=== PATIENT | female | born 1995 | race Caucasian/White ===

== ENCOUNTER 2019-08-05 13:16 | Observation (INO) ==
[2019-08-05 14:53] LABS: Basophils % 0.4 %; Eosinophils # 0.1 K/mcL (0.0-0.6); Eosinophils % 0.9 %; Hematocrit 44.2 % (35.3-44.9); Hemoglobin 14.4 g/dL (11.5-15.4); Immature Granulocytes % 0.3 % (0-4); Lymphocytes % 25.8 %; Mean Corpuscular HGB Conc 32.6 g/dL (31.6-35.5); Mean Corpuscular Hemoglobin 28.5 pg (28.0-33.3); Mean Corpuscular Volume 87.5 fL (83.0-100.0); Mean Platelet Volume 9.8 fL (9.4-12.4); Monocytes # 0.4 K/mcL (0.0-1.3); Monocytes % 5.4 %; Neutrophils # 5.1 K/mcL (1.6-8.9); Platelet Count 330 K/mcL (140-400); Red Blood Count 5.05 M/mcL (3.82-4.97); Red Cell Distribution Width 13.7 % (11.5-14.5); Segmented Neutrophils % 67.2 %; White Blood Count 7.6 K/mcL (4.3-11.1)
[2019-08-05 15:03] LABS: Bilirubin,Urine Negative (Negative); Blood,Urine Trace (Negative); Clarity,Urine Clear (Clear); Color,Urine Yellow (Yellow); Glucose,Urine (UA) Normal (Normal); Ketones,Urine Negative (Negative); Leukocyte Esterase,Urine Negative (Negative); Nitrite,Urine Negative (Negative); PH,Urine 6.5 pH Units (5.0-8.0); Protein,Urine Negative (Neg-Trace); Urobilinogen,Urine Normal (Normal)
[2019-08-05 15:06] LABS: Bacteria,Urine None Seen per hpf (None-Few); Hyaline Casts,Urine Few per lpf (None-Few); Squamous Epithelial Cell,Urine Many per lpf (None-Few); WBC,Urine 0-3 per hpf (0-3)
[2019-08-05 15:07] LABS: BUN/Creatinine Ratio 14 (6-26); Blood Urea Nitrogen 12 mg/dL (6-20); Calcium 9.8 mg/dL (8.6-10.3); Carbon Dioxide 28 mEq/L (23-29); Chloride 103 mEq/L (98-107); Glucose 82 mg/dL (70-105); Osmolality,Calculated 287 (280-300); Potassium 3.5 mEq/L (3.5-5.1); Sodium 139 mEq/L (136-145); eGFR For African Americans > 60 (> 60); eGFR For Non-African Americans > 60 (> 60)
[2019-08-05] MEDS ORDERED: 0.9 % Sodium Chloride 1,000 ML IVC ONE (15:26)
[2019-08-05 16:02] LABS: Alanine Aminotransferase 17 Units/L (7-52); Albumin 4.9 g/dL (3.5-5.7); Albumin/Globulin Ratio 1.5 (1.1-2.2); Alkaline Phosphatase 109 Units/L (34-104); Aspartate Amino Transferase 17 Units/L (13-39); Bilirubin,Direct 0.1 mg/dL (0.0-0.2); Bilirubin,Indirect 0.4 mg/dL (0.0-1.0); Bilirubin,Total 0.5 mg/dL (0.3-1.0); Globulin 3.2 g/dL (2.4-3.5); Total Protein 8.1 g/dL (6.4-8.9); Troponin I < 0.03 ng/mL (< 0.04)
[2019-08-05] MEDS ORDERED: Ondansetron 4 MG/2 ML VIAL IVP ONE (16:37)
[2019-08-05] MEDS ORDERED: Naloxone 0.4 MG/ML INJ IVP PRN (17:23)
[2019-08-05] MEDS: Acetaminophen 325 MG TABLET PO PRN (19:46)
[2019-08-05] MEDS: D5% in 0.45% NACL 1,000 ML IVC SCH (19:47)
[2019-08-05] MEDS: Ondansetron 4 MG/2 ML VIAL IVP PRN (23:06)
[2019-08-06 04:54] LABS: Basophils % 0.6 %; Eosinophils # 0.2 K/mcL (0.0-0.6); Eosinophils % 2.2 %; Hematocrit 38.9 % (35.3-44.9); Immature Granulocytes % 0.1 % (0-4); Lymphocytes # 2.8 K/mcL (0.6-4.6); Lymphocytes % 41.3 %; Mean Corpuscular HGB Conc 32.9 g/dL (31.6-35.5); Mean Corpuscular Hemoglobin 28.8 pg (28.0-33.3); Mean Corpuscular Volume 87.6 fL (83.0-100.0); Mean Platelet Volume 9.7 fL (9.4-12.4); Monocytes # 0.6 K/mcL (0.0-1.3); Neutrophils # 3.1 K/mcL (1.6-8.9); Platelet Count 283 K/mcL (140-400); Red Blood Count 4.44 M/mcL (3.82-4.97); Red Cell Distribution Width 13.4 % (11.5-14.5); Segmented Neutrophils % 46.8 %; White Blood Count 6.7 K/mcL (4.3-11.1)
[2019-08-06 04:58] LABS: Hemoglobin 12.8 g/dL (11.5-15.4)
[2019-08-06 05:13] LABS: BUN/Creatinine Ratio 12 (6-26); Blood Urea Nitrogen 9 mg/dL (6-20); Calcium 8.9 mg/dL (8.6-10.3); Carbon Dioxide 24 mEq/L (23-29); Chloride 105 mEq/L (98-107); Glucose 90 mg/dL (70-105); Osmolality,Calculated 286 (280-300); Phosphorous 3.8 mg/dL (2.7-4.5); Potassium 3.5 mEq/L (3.5-5.1); Sodium 139 mEq/L (136-145); eGFR For African Americans > 60 (> 60); eGFR For Non-African Americans > 60 (> 60)
[2019-08-06] MEDS: Ondansetron 4 MG/2 ML VIAL IVP PRN ×2 (07:29→16:06)
[2019-08-06] MEDS: D5% in 0.45% NACL 1,000 ML IVC SCH (08:59)
[2019-08-06] MEDS: Acetaminophen 325 MG TABLET PO PRN (16:05)
[2019-08-07 07:08] VITALS: BP 113/74
== END 2019-08-07 11:18 | disposition home or self-care (01) ==
LOC: EMEROOARM 13:16 → 3ANU 13:16
PROVIDERS: ADMIT Internal Medicine; ATTEND Internal Medicine

== ENCOUNTER 2020-02-29 15:50 | Observation (INO) ==
[2020-02-29] MEDS ORDERED: *HR* Promethazine 25 MG/ML VIAL IVP ONE (16:42)
[2020-02-29 17:33] LABS: Basophils # 0.1 K/mcL (0.0-0.2); Basophils % 0.5 %; Eosinophils # 0.1 K/mcL (0.0-0.6); Eosinophils % 1.4 %; Hematocrit 39.5 % (35.3-44.9); Hemoglobin 12.8 g/dL (11.5-15.4); Immature Granulocytes % 0.2 % (0-4); Mean Corpuscular HGB Conc 32.4 g/dL (31.6-35.5); Mean Corpuscular Hemoglobin 28.6 pg (28.0-33.3); Mean Corpuscular Volume 88.2 fL (83.0-100.0); Mean Platelet Volume 9.8 fL (9.4-12.4); Monocytes # 0.7 K/mcL (0.0-1.3); Neutrophils # 6.4 K/mcL (1.6-8.9); Platelet Count 344 K/mcL (140-400); Red Blood Count 4.48 M/mcL (3.82-4.97); Segmented Neutrophils % 68.9 %; White Blood Count 9.2 K/mcL (4.3-11.1)
[2020-02-29 17:35] LABS: Bilirubin,Urine Negative (Negative); Blood,Urine Small (Negative); Clarity,Urine Clear (Clear); Color,Urine Yellow (Yellow); Glucose,Urine (UA) Normal (Normal); Ketones,Urine Negative (Negative); Leukocyte Esterase,Urine Negative (Negative); Mucus,Urine Few per lpf (None-Few); Nitrite,Urine Negative (Negative); Protein,Urine Trace mg/dL (Neg-Trace); Specific Gravity,Urine 1.027 (1.010-1.025); Squamous Epithelial Cell,Urine Few per hpf (None-Few); Urobilinogen,Urine Normal (Normal); WBC,Urine 0-3 per hpf (0-3)
[2020-02-29 17:53] LABS: Alanine Aminotransferase 49 Units/L (7-52); Albumin 4.2 g/dL (3.5-5.7); Albumin/Globulin Ratio 1.2 (1.1-2.2); Alkaline Phosphatase 120 Units/L (34-104); Amylase 32 Units/L (29-103); Aspartate Amino Transferase 25 Units/L (13-39); BUN/Creatinine Ratio 17 (6-26); Bilirubin,Direct 0.1 mg/dL (0.0-0.2); Bilirubin,Indirect 0.2 mg/dL (0.0-1.0); Bilirubin,Total 0.3 mg/dL (0.3-1.0); Blood Urea Nitrogen 14 mg/dL (6-20); Calcium 9.4 mg/dL (8.6-10.3); Carbon Dioxide 26 mEq/L (23-29); Chloride 103 mEq/L (98-107); Globulin 3.5 g/dL (2.4-3.5); Glucose 81 mg/dL (70-105); Lipase 23 Units/L (11-82); Osmolality,Calculated 282 (280-300); Potassium 3.8 mEq/L (3.5-5.1); Sodium 136 mEq/L (136-145); Total Protein 7.7 g/dL (6.4-8.9); eGFR For African Americans > 60 (> 60); eGFR For Non-African Americans > 60 (> 60)
[2020-02-29] MEDS ORDERED: Morphine Sulfate 2 MG/ML SYRINGE IVP ONE (18:53)
[2020-02-29] MEDS ORDERED: ALPRAZolam 0.5 MG TABLET PO PRN (18:56)
[2020-02-29] MEDS: Pantoprazole 40 MG VIAL IVP SCH (20:58)
[2020-02-29] MEDS: Acetaminophen IV 1,000 MG/100 ML INFUS..BTL IVPB SCH (23:42)
[2020-02-29] MEDS: Ondansetron 4 MG/2 ML VIAL IVP PRN (23:46)
[2020-03-01] MEDS: Ampicillin/Sulbactam 3,000 MG in 0.9 % Sodium Chloride Mini Bag 100 ML IVPB SCH ×2 (00:01→05:37)
[2020-03-01] MEDS: Acetaminophen IV 1,000 MG/100 ML INFUS..BTL IVPB SCH (06:01)
[2020-03-01] MEDS: Ondansetron 4 MG/2 ML VIAL IVP PRN (06:32)
[2020-03-01] MEDS ORDERED: Isovue-300 50ML VIAL ONE (07:12)
[2020-03-01] MEDS ORDERED: *HR* FentaNYL (PF) 100 MCG/2 ML VIAL ONE (07:18)
[2020-03-01] MEDS ORDERED: *HR* Midazolam HCl 5 MG/5 ML VIAL IVP ONE (07:19)
[2020-03-01] MEDS: Pantoprazole 40 MG VIAL IVP SCH (07:19)
[2020-03-01] MEDS ORDERED: *HR* Propofol 200 MG/20 ML VIAL IVP ONE (07:19)
[2020-03-01] MEDS ORDERED: Dexamethasone 4 MG/ML VIAL ONE (07:21)
[2020-03-01] MEDS ORDERED: *HR* Rocuronium Bromide 50 MG/5 ML VIAL ONE (07:21)
[2020-03-01] MEDS ORDERED: Ondansetron 4 MG/2 ML VIAL ONE (07:21)
[2020-03-01] MEDS ORDERED: *HR* Succinylcholine 200 MG/10 ML VIAL IVP ONE (07:21)
[2020-03-01] MEDS ORDERED: Lidocaine HCL 4 ML Topical Solution (Laryng-O-Jet Kit Sterile Pak) TP ONE (07:21)
[2020-03-01] MEDS ORDERED: Balanced Salt Irrig Soln. IR ONE (07:47)
[2020-03-01] MEDS ORDERED: *HR* HYDROMORPHONE 2 MG/ML VIAL ONE (08:55)
[2020-03-01] MEDS ORDERED: Neostigmine Methylsulfate 3 MG/3 ML SYRINGE ONE (09:24)
[2020-03-01] MEDS ORDERED: Ketorolac 30 MG/ML VIAL ONE (09:24)
[2020-03-01] MEDS ORDERED: *HR* Midazolam HCl 2 MG/2 ML VIAL ONE (09:58)
[2020-03-01] MEDS ORDERED: cloNIDine HCL 0.1 MG TABLET ONE (10:19)
[2020-03-01] MEDS ORDERED: *HR* LORazepam 2 MG/ML VIAL ONE (10:19)
[2020-03-01] MEDS: *HR* HYDROmorphone (PF) 1 MG/ML SYRINGE ONE ×2 (10:27→10:37)
[2020-03-01] MEDS ORDERED: *HR* LORazepam 2 MG/ML VIAL IVP PRN (10:34)
[2020-03-01] MEDS ORDERED: cloNIDine HCL 0.1 MG TABLET PO ONE (10:36)
[2020-03-01] MEDS: *HR* HYDROmorphone PF 0.5 MG/0.5 ML SYRINGE IVP PRN ×2 (10:48→11:04)
[2020-03-01] MEDS ORDERED: *HR* OxyCODONE/APAP 5/325 TABLET PO PRN (11:32)
[2020-03-01] MEDS ORDERED: Ondansetron 4 MG/2 ML VIAL IVP PRN (11:32)
[2020-03-01] MEDS ORDERED: ALPRAZolam 0.25 MG TABLET PO PRN (11:32)
[2020-03-01] MEDS ORDERED: Ketorolac 15 MG/ML VIAL IVP SCH (12:00)
[2020-03-01] MEDS ORDERED: Ampicillin/Sulbactam 3,000 MG in 0.9 % Sodium Chloride Mini Bag 100 ML IVPB SCH (12:00)
[2020-03-01 14:50] VITALS: BP 117/79
== END 2020-03-01 16:27 | disposition home or self-care (01) ==
LOC: 3ANU 15:50 → EMEROOARM 15:50 → 3ANU 19:53
PROVIDERS: ADMIT Surgery; ATTEND Surgery

== ENCOUNTER 2020-03-02 21:19 | Observation (INO) ==
[2020-03-02] MEDS ORDERED: Isovue-370 500 ML BOTTLE IVP ONE (22:26)
[2020-03-02 22:44] LABS: Basophils % 0.4 %; Eosinophils # 0.1 K/mcL (0.0-0.6); Eosinophils % 0.6 %; Hematocrit 32.4 % (35.3-44.9); Immature Granulocytes % 0.2 % (0-4); Lymphocytes # 3.1 K/mcL (0.6-4.6); Lymphocytes % 30.7 %; Mean Corpuscular HGB Conc 32.7 g/dL (31.6-35.5); Mean Corpuscular Hemoglobin 28.5 pg (28.0-33.3); Mean Corpuscular Volume 87.1 fL (83.0-100.0); Mean Platelet Volume 9.4 fL (9.4-12.4); Monocytes # 0.9 K/mcL (0.0-1.3); Monocytes % 8.4 %; Neutrophils # 6.1 K/mcL (1.6-8.9); Platelet Count 313 K/mcL (140-400); Red Blood Count 3.72 M/mcL (3.82-4.97); Red Cell Distribution Width 13.4 % (11.5-14.5); Segmented Neutrophils % 59.7 %; White Blood Count 10.2 K/mcL (4.3-11.1)
[2020-03-02 22:52] LABS: Hemoglobin 10.6 g/dL (11.5-15.4)
[2020-03-02 23:04] LABS: BUN/Creatinine Ratio 18 (6-26); Blood Urea Nitrogen 14 mg/dL (6-20); Calcium 8.6 mg/dL (8.6-10.3); Carbon Dioxide 25 mEq/L (23-29); Chloride 107 mEq/L (98-107); Glucose 94 mg/dL (70-105); Osmolality,Calculated 284 (280-300); Potassium 3.8 mEq/L (3.5-5.1); Sodium 137 mEq/L (136-145); eGFR For African Americans > 60 (> 60); eGFR For Non-African Americans > 60 (> 60)
[2020-03-02 23:04] LABS: Bacteria,Urine Few per hpf (None-Few); Bilirubin,Urine Negative (Negative); Blood,Urine Small (Negative); Clarity,Urine Clear (Clear); Color,Urine Colorless (Yellow); Glucose,Urine (UA) Normal (Normal); Ketones,Urine Negative (Negative); Leukocyte Esterase,Urine Negative (Negative); Mucus,Urine Few per lpf (None-Few); Nitrite,Urine Negative (Negative); PH,Urine 6.5 pH Units (5.0-8.0); Protein,Urine Negative (Neg-Trace); Specific Gravity,Urine 1.015 (1.010-1.025); Squamous Epithelial Cell,Urine Few per hpf (None-Few); Urobilinogen,Urine Normal (Normal); WBC,Urine 0-3 per hpf (0-3)
[2020-03-03] MEDS ORDERED: Morphine Sulfate 2 MG/ML SYRINGE IVP ONE (00:38)
[2020-03-03] MEDS ORDERED: Ondansetron 4 MG/2 ML VIAL IVP ONE (00:48)
[2020-03-03] MEDS ORDERED: Naloxone 0.4 MG/ML INJ IVP PRN (02:22)
[2020-03-03] MEDS: 0.9 % Sodium Chloride 1,000 ML IVC SCH ×2 (03:39→11:58)
[2020-03-03 05:20] LABS: Hematocrit 33.2 % (35.3-44.9); Hemoglobin 10.7 g/dL (11.5-15.4); Mean Corpuscular HGB Conc 32.2 g/dL (31.6-35.5); Mean Corpuscular Hemoglobin 28.8 pg (28.0-33.3); Mean Corpuscular Volume 89.5 fL (83.0-100.0); Mean Platelet Volume 9.6 fL (9.4-12.4); Platelet Count 314 K/mcL (140-400); Red Blood Count 3.71 M/mcL (3.82-4.97); Red Cell Distribution Width 13.4 % (11.5-14.5); White Blood Count 10.6 K/mcL (4.3-11.1)
[2020-03-03 05:41] LABS: Alanine Aminotransferase 103 Units/L (7-52); Albumin 3.7 g/dL (3.5-5.7); Albumin/Globulin Ratio 1.3 (1.1-2.2); Alkaline Phosphatase 126 Units/L (34-104); Aspartate Amino Transferase 109 Units/L (13-39); BUN/Creatinine Ratio 16 (6-26); Bilirubin,Total 0.6 mg/dL (0.3-1.0); Blood Urea Nitrogen 12 mg/dL (6-20); Calcium 8.7 mg/dL (8.6-10.3); Carbon Dioxide 26 mEq/L (23-29); Chloride 104 mEq/L (98-107); Globulin 2.9 g/dL (2.4-3.5); Glucose 85 mg/dL (70-105); Magnesium 1.9 mg/dL (1.6-2.6); Osmolality,Calculated 283 (280-300); Phosphorous 2.3 mg/dL (2.7-4.5); Potassium 3.8 mEq/L (3.5-5.1); Sodium 137 mEq/L (136-145); Total Protein 6.6 g/dL (6.4-8.9); eGFR For African Americans > 60 (> 60); eGFR For Non-African Americans > 60 (> 60)
[2020-03-03] MEDS: Ondansetron 4 MG/2 ML VIAL IVP PRN ×3 (06:01→23:26)
[2020-03-03] MEDS ORDERED: ALPRAZolam 0.5 MG TABLET PO PRN (08:52)
[2020-03-03] MEDS: NON-FORMULARY MEDICATION 1 EACH EACH (Norgestimate-Ethinyl Estradiol [Sprintec 28 Day Tabl PO SCH (10:12)
[2020-03-03] MEDS: Pantoprazole 40 MG VIAL IVP SCH ×2 (12:53→17:34)
[2020-03-04 01:57] LABS: Albumin 3.6 g/dL (3.5-5.7); Albumin/Globulin Ratio 1.3 (1.1-2.2); Bilirubin,Direct 0.5 mg/dL (0.0-0.2); Bilirubin,Indirect 0.4 mg/dL (0.0-1.0); Bilirubin,Total 0.9 mg/dL (0.3-1.0); Globulin 2.8 g/dL (2.4-3.5); Total Protein 6.4 g/dL (6.4-8.9)
[2020-03-04 04:05] LABS: Hepatitis B Surface Antigen Nonreactive (Nonreactive)
[2020-03-04 04:35] LABS: Hepatitis C Virus Antibody Nonreactive (Nonreactive)
[2020-03-04 04:36] LABS: Hepatitis B Core IgM Nonreactive (Nonreactive)
[2020-03-04 04:37] LABS: Hepatitis A Antibody IgM Nonreactive (Nonreactive)
[2020-03-04] MEDS: Pantoprazole 40 MG VIAL IVP SCH (05:39)
[2020-03-04] MEDS: NON-FORMULARY MEDICATION 1 EACH EACH (Norgestimate-Ethinyl Estradiol [Sprintec 28 Day Tabl PO SCH (08:50)
[2020-03-04 10:59] VITALS: BP 126/80
[2020-03-04] MEDS: Ondansetron 4 MG/2 ML VIAL IVP PRN (11:21)
== END 2020-03-04 12:02 | disposition home or self-care (01) ==
LOC: 3BNU 21:19 → EMEROOARM 21:19 → SUATTDRO 03-03 02:09 → 3BNU 03-03 02:40
PROVIDERS: ADMIT Family Medicine; ATTEND Internal Medicine

== ENCOUNTER 2020-08-08 12:54 | Observation (INO) ==
[2020-08-08] MEDS ORDERED: Isovue-370 500 ML BOTTLE IVP ONE (13:51)
[2020-08-08] MEDS ORDERED: 0.9 % Sodium Chloride 1,000 ML IVC ONE ×2 (13:53→17:49)
[2020-08-08] MEDS ORDERED: Ondansetron 4 MG/2 ML VIAL IVP ONE (13:53)
[2020-08-08] MEDS ORDERED: Ketorolac 15 MG/ML VIAL IVP ONE (13:53)
[2020-08-08 14:47] LABS: Basophils # 0.1 K/mcL (0.0-0.2); Basophils % 0.6 %; Eosinophils # 0.2 K/mcL (0.0-0.6); Eosinophils % 1.8 %; Hematocrit 41.4 % (35.3-44.9); Hemoglobin 13.4 g/dL (11.5-15.4); Immature Granulocytes % 0.3 % (0-4); Lymphocytes # 2.2 K/mcL (0.6-4.6); Lymphocytes % 22.7 %; Mean Corpuscular HGB Conc 32.4 g/dL (31.6-35.5); Mean Corpuscular Volume 86.4 fL (83.0-100.0); Mean Platelet Volume 9.2 fL (9.4-12.4); Monocytes # 0.6 K/mcL (0.0-1.3); Neutrophils # 6.6 K/mcL (1.6-8.9); Platelet Count 340 K/mcL (140-400); Red Blood Count 4.79 M/mcL (3.82-4.97); Segmented Neutrophils % 68.6 %; White Blood Count 9.6 K/mcL (4.3-11.1)
[2020-08-08 15:07] LABS: Alanine Aminotransferase 55 Units/L (7-52); Albumin 4.3 g/dL (3.5-5.7); Albumin/Globulin Ratio 1.3 (1.1-2.2); Alkaline Phosphatase 125 Units/L (34-104); Aspartate Amino Transferase 32 Units/L (13-39); BUN/Creatinine Ratio 11 (6-26); Bilirubin,Total 0.3 mg/dL (0.3-1.0); Blood Urea Nitrogen 8 mg/dL (6-20); Calcium 9.3 mg/dL (8.6-10.3); Carbon Dioxide 25 mEq/L (23-29); Chloride 103 mEq/L (98-107); Globulin 3.3 g/dL (2.4-3.5); Glucose 92 mg/dL (70-105); Lipase 11 Units/L (11-82); Osmolality,Calculated 284 (280-300); Potassium 3.5 mEq/L (3.5-5.1); Sodium 138 mEq/L (136-145); Total Protein 7.6 g/dL (6.4-8.9); Troponin I < 0.03 ng/mL (< 0.04); eGFR For African Americans > 60 (> 60); eGFR For Non-African Americans > 60 (> 60)
[2020-08-08] MEDS ORDERED: *HR* Promethazine 25 MG/ML VIAL IM ONE (15:58)
[2020-08-08] MEDS ORDERED: *HR* LORazepam 2 MG/ML VIAL IVP ONE (18:02)
[2020-08-08] MEDS ORDERED: Naloxone 0.4 MG/ML INJ IVP PRN (20:40)
[2020-08-08] MEDS ORDERED: Ibuprofen 400 MG TABLET PO PRN (20:40)
[2020-08-08] MEDS ORDERED: ALPRAZolam 0.5 MG TABLET PO PRN (20:49)
[2020-08-08] MEDS: Ringers Solution, Lactated 1,000 ML IVC SCH (21:47)
[2020-08-08] MEDS: Ondansetron 4 MG/2 ML VIAL IVP PRN (21:49)
[2020-08-08] MEDS: *HR* Promethazine 25 MG/ML VIAL IM PRN (23:12)
[2020-08-09 06:38] LABS: Hematocrit 38.5 % (35.3-44.9); Hemoglobin 12.5 g/dL (11.5-15.4); Mean Corpuscular HGB Conc 32.5 g/dL (31.6-35.5); Mean Corpuscular Hemoglobin 28.2 pg (28.0-33.3); Mean Corpuscular Volume 86.9 fL (83.0-100.0); Mean Platelet Volume 9.5 fL (9.4-12.4); Platelet Count 307 K/mcL (140-400); Red Blood Count 4.43 M/mcL (3.82-4.97); Red Cell Distribution Width 13.2 % (11.5-14.5); White Blood Count 9.3 K/mcL (4.3-11.1)
[2020-08-09 06:55] LABS: BUN/Creatinine Ratio 9 (6-26); Blood Urea Nitrogen 6 mg/dL (6-20); Calcium 8.8 mg/dL (8.6-10.3); Carbon Dioxide 24 mEq/L (23-29); Chloride 105 mEq/L (98-107); Glucose 76 mg/dL (70-105); Osmolality,Calculated 282 (280-300); Potassium 3.6 mEq/L (3.5-5.1); Sodium 138 mEq/L (136-145); eGFR For African Americans > 60 (> 60); eGFR For Non-African Americans > 60 (> 60)
[2020-08-09 07:50] VITALS: BP 116/75
[2020-08-09] MEDS: *HR* Promethazine 25 MG/ML VIAL IM PRN (08:01)
[2020-08-09] MEDS: Ringers Solution, Lactated 1,000 ML IVC SCH (08:16)
[2020-08-09] MEDS ORDERED: Venlafaxine XR (24 HR) 150 MG CAP.ER.24H PO SCH (09:00)
[2020-08-09] MEDS: Ondansetron 4 MG/2 ML VIAL IVP PRN (11:13)
== END 2020-08-09 11:37 | disposition home or self-care (01) ==
LOC: EMEROOARM 12:54 → 3BNU 12:54 → SUATTDRO 20:29 → 3BNU 20:34
PROVIDERS: ADMIT Family Medicine; ATTEND Internal Medicine

== ENCOUNTER 2020-09-21 15:25 | Inpatient (IN) ==
[2020-09-21 16:19] LABS: Bacteria,Urine Few per hpf (None-Few); Basophils # 0.1 K/mcL (0.0-0.2); Basophils % 0.8 %; Bilirubin,Urine Negative (Negative); Blood,Urine Trace (Negative); Clarity,Urine Clear (Clear); Color,Urine Colorless (Yellow); Eosinophils # 0.2 K/mcL (0.0-0.6); Eosinophils % 2.1 %; Glucose,Urine (UA) Normal (Normal); Hematocrit 44.4 % (35.3-44.9); Hemoglobin 14.2 g/dL (11.5-15.4); Immature Granulocytes % 0.4 % (0-4); Ketones,Urine Negative (Negative); Leukocyte Esterase,Urine Negative (Negative); Lymphocytes # 2.4 K/mcL (0.6-4.6); Mean Corpuscular Hemoglobin 27.7 pg (28.0-33.3); Mean Corpuscular Volume 86.5 fL (83.0-100.0); Mean Platelet Volume 9.2 fL (9.4-12.4); Monocytes # 0.7 K/mcL (0.0-1.3); Monocytes % 6.6 %; Mucus,Urine Few per lpf (None-Few); Neutrophils # 7.5 K/mcL (1.6-8.9); Nitrite,Urine Negative (Negative); Platelet Count 428 K/mcL (140-400); Protein,Urine Negative (Neg-Trace); RBC,Urine 0-3 per hpf (0-3); Red Blood Count 5.13 M/mcL (3.82-4.97); Red Cell Distribution Width 12.8 % (11.5-14.5); Segmented Neutrophils % 68.1 %; Specific Gravity,Urine 1.007 (1.010-1.025); Squamous Epithelial Cell,Urine Few per hpf (None-Few); Urobilinogen,Urine Normal (Normal); WBC,Urine 0-3 per hpf (0-3); White Blood Count 11.1 K/mcL (4.3-11.1)
[2020-09-21 16:25] LABS: Amphetamine Screen,Urine Negative ng/mL (Cutoff=1000); Barbiturate Screen,Urine Negative ng/mL (Cutoff=200); Benzodiazepines Screen,Urine Negative ng/mL (Cutoff=200); Cannabinoid Screen,Urine Negative ng/mL (Cutoff = 50); Cocaine Screen,Urine Negative ng/mL (Cutoff= 300); Opiate Screen,Urine Negative ng/mL (Cutoff=300); Phencyclidine Screen,Urine Negative ng/mL (Cutoff=25)
[2020-09-21 16:45] LABS: Acetaminophen < 10 mcg/mL (10-20); Alanine Aminotransferase 51 Units/L (7-52); Albumin 4.7 g/dL (3.5-5.7); Albumin/Globulin Ratio 1.2 (1.1-2.2); Alkaline Phosphatase 147 Units/L (34-104); Aspartate Amino Transferase 33 Units/L (13-39); BUN/Creatinine Ratio 13 (6-26); Bilirubin,Direct 0.1 mg/dL (0.0-0.2); Bilirubin,Indirect 0.3 mg/dL (0.0-1.0); Bilirubin,Total 0.4 mg/dL (0.3-1.0); Blood Urea Nitrogen 9 mg/dL (6-20); Calcium 9.9 mg/dL (8.6-10.3); Carbon Dioxide 27 mEq/L (23-29); Chloride 102 mEq/L (98-107); Chol/HDL Ratio 4.1 (0-4.9); Cholesterol 240 mg/dL (< 200); Ethanol < 10 mg/dL (Less than 10); Globulin 3.9 g/dL (2.4-3.5); Glucose 107 mg/dL (70-105); HDL Cholesterol 59 mg/dL (40-59); LDL Cholesterol,Calculated 149 mg/dL (< 100); Osmolality,Calculated 287 (280-300); Potassium 3.5 mEq/L (3.5-5.1); Salicylate < 2.5 mg/dL (15.0-30.0); Sodium 139 mEq/L (136-145); Total Protein 8.6 g/dL (6.4-8.9); Triglycerides 160 mg/dL (< 150); eGFR For African Americans > 60 (> 60); eGFR For Non-African Americans > 60 (> 60)
[2020-09-21 17:10] LABS: Estimated Average Glucose 111 mg/dl; Hemoglobin A1C 5.5 %
[2020-09-21] MEDS ORDERED: *HR* LORazepam 1 MG TABLET PO PRN (19:11)
[2020-09-21] MEDS ORDERED: MOM Conc 10 ML UD.LIQ PO PRN (19:11)
[2020-09-21] MEDS ORDERED: Haloperidol Lactate 5 MG/ML VIAL IM PRN (19:11)
[2020-09-21] MEDS ORDERED: Mag Hydrox/Al Hydrox/Simeth 30 ML UDC PO PRN (19:11)
[2020-09-21] MEDS ORDERED: *HR* LORazepam 2 MG/ML VIAL IM PRN (19:11)
[2020-09-21] MEDS ORDERED: Ibuprofen 400 MG TABLET PO PRN (19:11)
[2020-09-21] MEDS ORDERED: haloperidoL 5 MG TABLET PO PRN (19:11)
[2020-09-21] MEDS ORDERED: ALPRAZolam 0.5 MG TABLET PO PRN (19:15)
[2020-09-22] MEDS ORDERED: Venlafaxine XR (24 HR) 75 MG CAP.ER.24H PO SCH (09:00)
[2020-09-22] MEDS: ARIPiprazole 2 MG TABLET PO SCH (09:48)
[2020-09-22] MEDS: NORGESTIMATE ETHINYL ESTRADIOL PO SCH (09:49)
[2020-09-22] MEDS: traZODone 50 MG TABLET PO PRN (21:10)
[2020-09-23] MEDS: NORGESTIMATE ETHINYL ESTRADIOL PO SCH (08:20)
[2020-09-23] MEDS: Venlafaxine XR (24 HR) 37.5 MG CAP.ER.24H PO SCH (08:20)
[2020-09-23] MEDS: ARIPiprazole 2 MG TABLET PO SCH (08:20)
[2020-09-23] MEDS ORDERED: *HR* LORazepam 0.5 MG TABLET PO PRN ×2 (10:31→10:58)
[2020-09-23] MEDS: traZODone 50 MG TABLET PO PRN (20:27)
[2020-09-24] MEDS: Venlafaxine XR (24 HR) 37.5 MG CAP.ER.24H PO SCH (08:44)
[2020-09-24] MEDS: ARIPiprazole 2 MG TABLET PO SCH (08:44)
[2020-09-24] MEDS: NORGESTIMATE ETHINYL ESTRADIOL PO SCH (10:29)
[2020-09-24] MEDS: traZODone 50 MG TABLET PO PRN (20:40)
[2020-09-25] MEDS: *HR* LORazepam 1 MG TABLET PO SCH (08:36)
[2020-09-25] MEDS: Venlafaxine XR (24 HR) 37.5 MG CAP.ER.24H PO SCH (08:36)
[2020-09-25] MEDS: ARIPiprazole 2 MG TABLET PO SCH (08:36)
[2020-09-25] MEDS: NORGESTIMATE ETHINYL ESTRADIOL PO SCH (09:26)
[2020-09-25] MEDS ORDERED: traZODone 50 MG TABLET PO SCH (21:00)
[2020-09-26] MEDS: *HR* LORazepam 1 MG TABLET PO SCH (09:27)
[2020-09-26] MEDS: NORGESTIMATE ETHINYL ESTRADIOL PO SCH (09:27)
[2020-09-26] MEDS: ARIPiprazole 2 MG TABLET PO SCH (09:27)
[2020-09-26 12:38] VITALS: BP 114/78
[2020-09-26] MEDS ORDERED: FLU Vac QV 20-21 (6Month+)/PF 0.5 ML SYRINGE IM ONE (13:37)
== END 2020-09-26 14:00 | disposition home or self-care (01) | DRG 751 ==
LOC: EMEROOARM 15:25 → 1ANU 19:08
PROVIDERS: ADMIT Psychiatry & Neurology Psychiatry; ATTEND Psychiatry & Neurology Psychiatry

== ENCOUNTER 2020-10-17 10:14 | Inpatient (IN) ==
[2020-10-17 10:45] LABS: Bilirubin,Urine Negative (Negative); Blood,Urine Negative (Negative); Clarity,Urine Clear (Clear); Color,Urine Colorless (Yellow); Glucose,Urine (UA) Normal (Normal); Ketones,Urine Negative (Negative); Leukocyte Esterase,Urine Negative (Negative); Nitrite,Urine Negative (Negative); PH,Urine 6.5 pH Units (5.0-8.0); Protein,Urine Negative (Neg-Trace); Specific Gravity,Urine 1.013 (1.010-1.025); Urobilinogen,Urine Normal (Normal)
[2020-10-17 10:50] LABS: Basophils # 0.1 K/mcL (0.0-0.2); Eosinophils # 0.2 K/mcL (0.0-0.6); Eosinophils % 2.3 %; Hematocrit 39.1 % (35.3-44.9); Hemoglobin 12.7 g/dL (11.5-15.4); Immature Granulocytes % 0.2 % (0-4); Lymphocytes # 1.9 K/mcL (0.6-4.6); Lymphocytes % 22.7 %; Mean Corpuscular HGB Conc 32.5 g/dL (31.6-35.5); Mean Corpuscular Hemoglobin 27.6 pg (28.0-33.3); Mean Platelet Volume 8.9 fL (9.4-12.4); Monocytes # 0.5 K/mcL (0.0-1.3); Monocytes % 6.1 %; Neutrophils # 5.6 K/mcL (1.6-8.9); Platelet Count 346 K/mcL (140-400); Red Cell Distribution Width 13.2 % (11.5-14.5); Segmented Neutrophils % 67.7 %; White Blood Count 8.2 K/mcL (4.3-11.1)
[2020-10-17 11:11] LABS: Acetaminophen < 10 mcg/mL (10-20); BUN/Creatinine Ratio 15 (6-26); Blood Urea Nitrogen 11 mg/dL (6-20); Carbon Dioxide 25 mEq/L (23-29); Chloride 105 mEq/L (98-107); Chol/HDL Ratio 4.1 (0-4.9); Cholesterol 207 mg/dL (< 200); Ethanol < 10 mg/dL (Less than 10); Glucose 103 mg/dL (70-105); HDL Cholesterol 50 mg/dL (40-59); LDL Cholesterol,Calculated 140 mg/dL (< 100); Osmolality,Calculated 286 (280-300); Potassium 3.7 mEq/L (3.5-5.1); Salicylate < 2.5 mg/dL (15.0-30.0); Sodium 138 mEq/L (136-145); Triglycerides 86 mg/dL (< 150); eGFR For African Americans > 60 (> 60); eGFR For Non-African Americans > 60 (> 60)
[2020-10-17 11:46] LABS: Amphetamine Screen,Urine Negative ng/mL (Cutoff=1000); Barbiturate Screen,Urine Negative ng/mL (Cutoff=200); Benzodiazepines Screen,Urine Negative ng/mL (Cutoff=200); Cannabinoid Screen,Urine Negative ng/mL (Cutoff = 50); Cocaine Screen,Urine Negative ng/mL (Cutoff= 300); Opiate Screen,Urine Negative ng/mL (Cutoff=300); Phencyclidine Screen,Urine Negative ng/mL (Cutoff=25)
[2020-10-17 11:51] LABS: Estimated Average Glucose 111 mg/dl; Hemoglobin A1C 5.5 %
[2020-10-17] MEDS ORDERED: haloperidoL 5 MG TABLET PO PRN (13:38)
[2020-10-17] MEDS ORDERED: MOM Conc 10 ML UD.LIQ PO PRN (13:38)
[2020-10-17] MEDS ORDERED: Haloperidol Lactate 5 MG/ML VIAL IM PRN (13:38)
[2020-10-17] MEDS ORDERED: Mag Hydrox/Al Hydrox/Simeth 30 ML UDC PO PRN (13:38)
[2020-10-17] MEDS ORDERED: Acetaminophen 325 MG TABLET PO PRN (13:38)
[2020-10-17] MEDS ORDERED: *HR* LORazepam 2 MG/ML VIAL IM PRN (13:38)
[2020-10-17 14:05] LABS: Thyroid Stimulating Hormone 3.291 mcIU/mL (0.340-5.600)
[2020-10-17] MEDS: hydrOXYzine pamoate 25 MG CAPSULE PO PRN (16:27)
[2020-10-17] MEDS: *HR* LORazepam 1 MG TABLET PO PRN (17:53)
[2020-10-17] MEDS: traZODone 50 MG TABLET PO SCH (20:52)
[2020-10-18] MEDS: ARIPiprazole 2 MG TABLET PO SCH (08:28)
[2020-10-18] MEDS ORDERED: *HR* LORazepam 1 MG TABLET PO SCH (09:00)
[2020-10-18] MEDS: hydrOXYzine pamoate 25 MG CAPSULE PO PRN (13:58)
[2020-10-18] MEDS: *HR* LORazepam 1 MG TABLET PO SCH (20:59)
[2020-10-18] MEDS: traZODone 50 MG TABLET PO SCH (20:59)
[2020-10-18] MEDS: *HR* LORazepam 1 MG TABLET PO PRN (21:20)
[2020-10-19] MEDS: ARIPiprazole 2 MG TABLET PO SCH (08:38)
[2020-10-19] MEDS: *HR* LORazepam 1 MG TABLET PO SCH ×2 (08:38→20:12)
[2020-10-19] MEDS: hydrOXYzine pamoate 25 MG CAPSULE PO PRN ×2 (10:25→21:18)
[2020-10-19] MEDS: lamoTRIgine 25 MG TABLET PO SCH (20:12)
[2020-10-19] MEDS: traZODone 50 MG TABLET PO SCH (20:12)
[2020-10-20] MEDS: ARIPiprazole 2 MG TABLET PO SCH (09:00)
[2020-10-20] MEDS: *HR* LORazepam 1 MG TABLET PO SCH ×2 (09:00→20:30)
[2020-10-20] MEDS: hydrOXYzine pamoate 25 MG CAPSULE PO PRN ×2 (09:22→20:36)
[2020-10-20] MEDS: *HR* LORazepam 1 MG TABLET PO PRN (14:38)
[2020-10-20] MEDS: lamoTRIgine 25 MG TABLET PO SCH (20:31)
[2020-10-20] MEDS ORDERED: traZODone 50 MG TABLET PO SCH (21:00)
[2020-10-20] MEDS ORDERED: traZODone 50 MG TABLET PO ONE (22:03)
[2020-10-21] MEDS: *HR* LORazepam 1 MG TABLET PO SCH ×2 (09:39→20:43)
[2020-10-21] MEDS: ARIPiprazole 2 MG TABLET PO SCH (09:40)
[2020-10-21] MEDS: hydrOXYzine pamoate 25 MG CAPSULE PO PRN (12:51)
[2020-10-21] MEDS: *HR* LORazepam 1 MG TABLET PO PRN (18:54)
[2020-10-21] MEDS: lamoTRIgine 25 MG TABLET PO SCH (20:45)
[2020-10-21] MEDS ORDERED: traZODone 50 MG TABLET PO SCH (21:00)
[2020-10-22] MEDS: hydrOXYzine pamoate 25 MG CAPSULE PO PRN ×3 (00:37→19:50)
[2020-10-22] MEDS: *HR* LORazepam 1 MG TABLET PO SCH ×2 (09:31→20:05)
[2020-10-22] MEDS: ARIPiprazole 5 MG TABLET PO SCH (09:50)
[2020-10-22] MEDS: NORGESTIMATE ETHINYL ESTRADIOL PO SCH (09:58)
[2020-10-22] MEDS: ARIPiprazole 2 MG TABLET PO SCH (09:59)
[2020-10-22] MEDS: *HR* LORazepam 1 MG TABLET PO PRN (18:29)
[2020-10-22] MEDS: lamoTRIgine 25 MG TABLET PO SCH (20:06)
[2020-10-22] MEDS ORDERED: Mirtazapine 15 MG TABLET PO SCH (21:00)
[2020-10-22] MEDS: traZODone 50 MG TABLET PO PRN (21:26)
[2020-10-23] MEDS: ARIPiprazole 5 MG TABLET PO SCH (09:11)
[2020-10-23] MEDS: *HR* LORazepam 1 MG TABLET PO SCH ×2 (09:12→21:00)
[2020-10-23] MEDS: NORGESTIMATE ETHINYL ESTRADIOL PO SCH (09:17)
[2020-10-23] MEDS: hydrOXYzine pamoate 25 MG CAPSULE PO PRN ×2 (14:07→19:03)
[2020-10-23] MEDS: *HR* LORazepam 1 MG TABLET PO PRN (17:35)
[2020-10-23] MEDS ORDERED: lamoTRIgine 25 MG TABLET PO SCH ×2 (21:00)
[2020-10-23] MEDS ORDERED: Mirtazapine 15 MG TABLET PO SCH (21:00)
[2020-10-23] MEDS: traZODone 50 MG TABLET PO PRN (21:28)
[2020-10-24 08:43] VITALS: BP 116/78
[2020-10-24] MEDS: ARIPiprazole 5 MG TABLET PO SCH (08:46)
[2020-10-24] MEDS: *HR* LORazepam 1 MG TABLET PO SCH (08:46)
[2020-10-24] MEDS: NORGESTIMATE ETHINYL ESTRADIOL PO SCH (08:48)
[2020-10-25] MEDS ORDERED: lamoTRIgine 100 MG TABLET PO SCH (21:00)
== END 2020-10-24 11:05 | disposition home or self-care (01) | DRG 753 ==
LOC: EMEROOARM 10:14 → 1ANU 13:33
PROVIDERS: ADMIT Psychiatry & Neurology Psychiatry; ATTEND Psychiatry & Neurology Psychiatry

== ENCOUNTER 2020-12-28 20:18 | Inpatient (IN) ==
[2020-12-28] MEDS ORDERED: Ondansetron ODT 4 MG TAB.RAPDIS SL ONE (21:16)
[2020-12-28 21:51] LABS: Basophils # 0.1 K/mcL (0.0-0.2); Basophils % 0.6 %; Eosinophils # 0.1 K/mcL (0.0-0.6); Eosinophils % 1.7 %; Hematocrit 37.6 % (35.3-44.9); Hemoglobin 12.2 g/dL (11.5-15.4); Immature Granulocytes % 0.2 % (0-4); Lymphocytes # 2.8 K/mcL (0.6-4.6); Lymphocytes % 33.1 %; Mean Corpuscular HGB Conc 32.4 g/dL (31.6-35.5); Mean Corpuscular Hemoglobin 27.1 pg (28.0-33.3); Mean Corpuscular Volume 83.4 fL (83.0-100.0); Mean Platelet Volume 9.3 fL (9.4-12.4); Monocytes % 6.5 %; Platelet Count 324 K/mcL (140-400); Red Blood Count 4.51 M/mcL (3.82-4.97); Red Cell Distribution Width 13.8 % (11.5-14.5); Segmented Neutrophils % 57.9 %; White Blood Count 8.4 K/mcL (4.3-11.1)
[2020-12-28 21:52] LABS: Monocytes # 0.6 K/mcL (0.0-1.3); Neutrophils # 4.9 K/mcL (1.6-8.9)
[2020-12-28 22:18] LABS: Reactive Lymphocytes Present (Not Present)
[2020-12-28 22:34] LABS: Bilirubin,Urine Negative (Negative); Blood,Urine Negative (Negative); Clarity,Urine Clear (Clear); Color,Urine Light-Yellow (Yellow); Glucose,Urine (UA) Normal (Normal); Ketones,Urine Negative (Negative); Leukocyte Esterase,Urine Negative (Negative); Nitrite,Urine Negative (Negative); PH,Urine 6.5 pH Units (5.0-8.0); Protein,Urine Negative (Neg-Trace); Specific Gravity,Urine 1.018 (1.010-1.025); Urobilinogen,Urine Normal (Normal)
[2020-12-28 22:36] LABS: Acetaminophen < 10 mcg/mL (10-20); Alanine Aminotransferase 47 Units/L (7-52); Albumin/Globulin Ratio 1.3 (1.1-2.2); Alkaline Phosphatase 124 Units/L (34-104); Aspartate Amino Transferase 24 Units/L (13-39); BUN/Creatinine Ratio 11 (6-26); Bilirubin,Direct 0.1 mg/dL (0.0-0.2); Bilirubin,Indirect 0.2 mg/dL (0.0-1.0); Bilirubin,Total 0.3 mg/dL (0.3-1.0); Blood Urea Nitrogen 10 mg/dL (6-20); Calcium 9.1 mg/dL (8.6-10.3); Carbon Dioxide 25 mEq/L (23-29); Chloride 104 mEq/L (98-107); Ethanol < 10 mg/dL (Less than 10); Glucose 116 mg/dL (70-105); Osmolality,Calculated 284 (280-300); Potassium 3.8 mEq/L (3.5-5.1); Salicylate < 2.5 mg/dL (15.0-30.0); Sodium 137 mEq/L (136-145); Thyroid Stimulating Hormone 4.108 mcIU/mL (0.340-5.600); eGFR For African Americans > 60 (> 60); eGFR For Non-African Americans > 60 (> 60)
[2020-12-28 22:44] LABS: Amphetamine Screen,Urine Negative ng/mL (Cutoff=1000); Barbiturate Screen,Urine Negative ng/mL (Cutoff=200); Benzodiazepines Screen,Urine Negative ng/mL (Cutoff=200); Cannabinoid Screen,Urine Negative ng/mL (Cutoff = 50); Cocaine Screen,Urine Negative ng/mL (Cutoff= 300); Opiate Screen,Urine Negative ng/mL (Cutoff=300); Phencyclidine Screen,Urine Negative ng/mL (Cutoff=25)
[2020-12-29] MEDS ORDERED: traZODone 50 MG TABLET PO PRN (01:14)
[2020-12-29] MEDS ORDERED: *HR* LORazepam 1 MG TABLET PO PRN (01:14)
[2020-12-29] MEDS ORDERED: haloperidoL 5 MG TABLET PO PRN (01:14)
[2020-12-29] MEDS ORDERED: Haloperidol Lactate 5 MG/ML VIAL IM PRN (01:14)
[2020-12-29] MEDS ORDERED: *HR* LORazepam 2 MG/ML VIAL IM PRN (01:14)
[2020-12-29] MEDS ORDERED: Acetaminophen 325 MG TABLET PO PRN (01:14)
[2020-12-29] MEDS ORDERED: hydrOXYzine pamoate 25 MG CAPSULE PO PRN (01:14)
[2020-12-29] MEDS ORDERED: lamoTRIgine 100 MG TABLET PO SCH (09:30)
[2020-12-29] MEDS: ARIPiprazole 5 MG TABLET PO SCH (11:11)
[2020-12-29] MEDS: lamoTRIgine 25 MG TABLET PO SCH ×2 (11:13→20:45)
[2020-12-29] MEDS: *HR* LORazepam 1 MG TABLET PO SCH ×2 (11:14→20:45)
[2020-12-29] MEDS: hydrOXYzine pamoate 25 MG CAPSULE PO PRN ×2 (14:15→18:53)
[2020-12-29] MEDS: FLUoxetine 20 MG CAPSULE PO SCH (16:38)
[2020-12-29] MEDS ORDERED: traZODone 50 MG TABLET PO SCH (21:00)
[2020-12-29] MEDS: [UNRECOGNIZED DRUG - OTHER] PO SCH (21:19)
[2020-12-29] MEDS: NORGESTIMATE PO SCH (21:19)
[2020-12-29] MEDS: ETHINYL ESTRADIOL PO SCH (21:19)
[2020-12-30] MEDS: lamoTRIgine 25 MG TABLET PO SCH (08:54)
[2020-12-30] MEDS: *HR* LORazepam 1 MG TABLET PO SCH (08:54)
[2020-12-30] MEDS: FLUoxetine 20 MG CAPSULE PO SCH (08:55)
[2020-12-30] MEDS: ETHINYL ESTRADIOL PO SCH (08:56)
[2020-12-30] MEDS: [UNRECOGNIZED DRUG - OTHER] PO SCH (08:56)
[2020-12-30] MEDS: NORGESTIMATE PO SCH (08:56)
[2020-12-30] MEDS: ARIPiprazole 5 MG TABLET PO SCH (08:56)
[2020-12-30] MEDS ORDERED: Cholecalciferol (D-3) 1,000 UNIT (25MCG) TABLET PO SCH (09:00)
[2020-12-30 09:10] VITALS: BP 117/79
== END 2020-12-30 13:40 | disposition home or self-care (01) | DRG 756 ==
LOC: EMEROOARM 20:18 → 1ANU 12-29 01:13
PROVIDERS: ADMIT Psychiatry & Neurology Forensic Psychiatry; ATTEND Psychiatry & Neurology Forensic Psychiatry

== ENCOUNTER 2021-04-11 23:01 | Observation (INO) ==
[2021-04-12 04:48] LABS: Basophils % 0.3 %; Hemoglobin 14.6 g/dL (11.5-15.4); Immature Granulocytes % 0.6 % (0-4); Platelet Count 117 K/mcL (140-400); Red Cell Distribution Width 13.7 % (11.5-14.5)
[2021-04-12 04:49] LABS: Immature Platelets 6.1 % (1.1-6.1); Lymphocytes % 30.4 %; Mean Corpuscular HGB Conc 33.2 g/dL (31.6-35.5); Mean Corpuscular Hemoglobin 28.1 pg (28.0-33.3); Mean Corpuscular Volume 84.6 fL (83.0-100.0); Monocytes # 0.4 K/mcL (0.0-1.3); Monocytes % 12.3 %; Neutrophils # 1.8 K/mcL (1.6-8.9); Segmented Neutrophils % 56.4 %; White Blood Count 3.2 K/mcL (4.3-11.1)
[2021-04-12 05:05] LABS: BUN/Creatinine Ratio 14 (6-26); Blood Urea Nitrogen 15 mg/dL (6-20); Calcium 8.7 mg/dL (8.6-10.3); Carbon Dioxide 23 mEq/L (23-29); Chloride 103 mEq/L (98-107); Glucose 106 mg/dL (70-105); Osmolality,Calculated 287 (280-300); Potassium 3.7 mEq/L (3.5-5.1); Sodium 138 mEq/L (136-145); eGFR For African Americans > 60 (> 60); eGFR For Non-African Americans > 60 (> 60)
[2021-04-12 05:06] LABS: Troponin I < 0.03 ng/mL (< 0.04)
[2021-04-12] MEDS ORDERED: Isovue-370 500 ML BOTTLE IVP ONE (05:34)
[2021-04-12] MEDS ORDERED: Naloxone 0.4 MG/ML INJ IVP PRN (12:37)
[2021-04-12] MEDS ORDERED: Melatonin 3 MG TABLET PO PRN (12:37)
[2021-04-12] MEDS ORDERED: Acetaminophen 325 MG TABLET PO PRN (12:37)
[2021-04-12] MEDS ORDERED: *HR* HYDROcodone/Acet 5/325 mg TABLET PO PRN (12:37)
[2021-04-12] MEDS ORDERED: Saline Nasal Spray 44 ML BOTTLE NS PRN (12:41)
[2021-04-12] MEDS ORDERED: Artificial Tears SOLN 15 ML BOTTLE BOTH EYES PRN (12:41)
[2021-04-12 13:23] LABS: Magnesium 2.1 mg/dL (1.6-2.6); Phosphorous 2.5 mg/dL (2.7-4.5)
[2021-04-12] MEDS: Cholecalciferol (D-3) 1,000 UNIT (25MCG) TABLET PO SCH (14:39)
[2021-04-12] MEDS: Ondansetron 4 MG/2 ML VIAL IVP PRN (14:53)
[2021-04-12] MEDS ORDERED: *HR* LORazepam 0.5 MG TABLET PO PRN (14:54)
[2021-04-12 15:14] LABS: INR 1.1; Prothrombin Time 12.7 Seconds (9.4-12.1)
[2021-04-12 15:20] LABS: C-Reactive Protein 8 mg/L (Less than 10); Lactate Dehydrogenase 415 Units/L (140-271)
[2021-04-12 15:38] LABS: Ferritin 619 ng/mL (10-120)
[2021-04-12] MEDS: Ipratropium 1 PUFF INHALER IH SCH ×2 (16:24→23:20)
[2021-04-12] MEDS: lamoTRIgine 100 MG TABLET PO SCH (22:03)
[2021-04-12] MEDS: Chlorhexidine Rinse 15 ML MOUTHWASH MM SCH (22:04)
[2021-04-12] MEDS: traZODone 50 MG TABLET PO SCH (22:04)
[2021-04-12 22:57] LABS: Bacteria,Urine Few per hpf (None-Few); Bilirubin,Urine Small (Negative); Blood,Urine Small (Negative); Clarity,Urine Turbid (Clear); Color,Urine Yellow (Yellow); Glucose,Urine (UA) Normal (Normal); Hyaline Casts,Urine Few per lpf (None Seen); Ketones,Urine 40 mg/dL (Negative); Leukocyte Esterase,Urine Small (Negative); Mucus,Urine Many per lpf (None-Few); Nitrite,Urine Negative (Negative); Protein,Urine >=600 mg/dL (Neg-Trace); Specific Gravity,Urine > 1.030 (1.010-1.025); Squamous Epithelial Cell,Urine Moderate per hpf (None-Few); WBC,Urine 30-50 per hpf (0-3)
[2021-04-12 23:20] LABS: Adenovirus Not Detected (Not Detect); Bordetella Pertussis Not Detected (Not Detect); Chlamydophila pneumoniae Not Detected (Not Detect); Coronavirus 229E Not Detected (Not Detect); Coronavirus HKU1 Not Detected (Not Detect); Coronavirus NL63 Not Detected (Not Detect); Coronavirus OC43 Not Detected (Not Detect); Human Metapneumovirus Not Detected (Not Detect); Human Rhinovirus/Enterovirus Not Detected (Not Detect); Influenza A Subtype 2009 H1 Not Detected (Not Detect); Influenza B Not Detected (Not Detect); Mycoplasma pneumoniae Not Detected (Not Detect); Parainfluenza Virus 1 Not Detected (Not Detect); Parainfluenza Virus 2 Not Detected (Not Detect); Parainfluenza Virus 3 Not Detected (Not Detect); Parainfluenza Virus 4 Not Detected (Not Detect); Respiratory Syncytial Virus Not Detected (Not Detect)
[2021-04-12 23:22] LABS: SARS-CoV-2 DETECTED (Not Detect)
[2021-04-13] MEDS: Ipratropium 1 PUFF INHALER IH SCH ×4 (04:00→22:18)
[2021-04-13] MEDS: ARIPiprazole 5 MG TABLET PO SCH (08:34)
[2021-04-13] MEDS: Cholecalciferol (D-3) 1,000 UNIT (25MCG) TABLET PO SCH (08:34)
[2021-04-13] MEDS: Piperacillin/Tazobactam 3.375 GM in 0.9 % Sodium Chloride Mini Bag 100 ML IVPB SCH ×2 (08:35→16:02)
[2021-04-13] MEDS: Chlorhexidine Rinse 15 ML MOUTHWASH MM SCH ×2 (08:35→21:31)
[2021-04-13] MEDS: Ondansetron 4 MG/2 ML VIAL IVP PRN (11:06)
[2021-04-13] MEDS: *HR* Enoxaparin 40 MG/0.4 ML SYRINGE SQ SCH (12:18)
[2021-04-13 12:35] LABS: Hematocrit 39.3 % (35.3-44.9); Immature Granulocytes % 0.5 % (0-4); Lymphocytes # 0.6 K/mcL (0.6-4.6); Lymphocytes % 13.9 %; Mean Corpuscular HGB Conc 33.1 g/dL (31.6-35.5); Mean Corpuscular Hemoglobin 28.3 pg (28.0-33.3); Mean Corpuscular Volume 85.6 fL (83.0-100.0); Mean Platelet Volume 10.6 fL (9.4-12.4); Monocytes # 0.2 K/mcL (0.0-1.3); Monocytes % 4.5 %; Neutrophils # 3.2 K/mcL (1.6-8.9); Platelet Count 141 K/mcL (140-400); Red Blood Count 4.59 M/mcL (3.82-4.97); Red Cell Distribution Width 13.9 % (11.5-14.5); Segmented Neutrophils % 81.1 %
[2021-04-13 13:22] LABS: Alanine Aminotransferase 238 Units/L (7-52); Albumin 3.7 g/dL (3.5-5.7); Albumin/Globulin Ratio 1.3 (1.1-2.2); Alkaline Phosphatase 141 Units/L (34-104); Aspartate Amino Transferase 153 Units/L (13-39); BUN/Creatinine Ratio 16 (6-26); Bilirubin,Total 0.4 mg/dL (0.3-1.0); Blood Urea Nitrogen 13 mg/dL (6-20); Calcium 8.6 mg/dL (8.6-10.3); Carbon Dioxide 24 mEq/L (23-29); Chloride 104 mEq/L (98-107); Ferritin 405 ng/mL (10-120); Globulin 2.9 g/dL (2.4-3.5); Glucose 131 mg/dL (70-105); Lactate Dehydrogenase 395 Units/L (140-271); Magnesium 2.2 mg/dL (1.6-2.6); Osmolality,Calculated 290 (280-300); Phosphorous 2.1 mg/dL (2.7-4.5); Potassium 3.7 mEq/L (3.5-5.1); Sodium 139 mEq/L (136-145); Total Protein 6.6 g/dL (6.4-8.9); eGFR For African Americans > 60 (> 60); eGFR For Non-African Americans > 60 (> 60)
[2021-04-13 14:13] LABS: C-Reactive Protein 18 mg/L (Less than 10)
[2021-04-13] MEDS ORDERED: Menthol 1 EACH LOZENGE PO PRN (16:40)
[2021-04-13] MEDS: lamoTRIgine 100 MG TABLET PO SCH (21:31)
[2021-04-13] MEDS: traZODone 50 MG TABLET PO SCH (21:31)
[2021-04-14] MEDS: Piperacillin/Tazobactam 3.375 GM in 0.9 % Sodium Chloride Mini Bag 100 ML IVPB SCH ×2 (00:58→08:25)
[2021-04-14 02:01] LABS: Hematocrit 39.8 % (35.3-44.9); Hemoglobin 13.2 g/dL (11.5-15.4); Mean Corpuscular HGB Conc 33.2 g/dL (31.6-35.5); Mean Corpuscular Hemoglobin 27.8 pg (28.0-33.3); Mean Platelet Volume 12.3 fL (9.4-12.4); Platelet Count 118 K/mcL (140-400); Red Blood Count 4.74 M/mcL (3.82-4.97); Red Cell Distribution Width 13.6 % (11.5-14.5); White Blood Count 2.2 K/mcL (4.3-11.1)
[2021-04-14] MEDS: Ipratropium 1 PUFF INHALER IH SCH ×2 (04:35→09:30)
[2021-04-14 05:43] LABS: BUN/Creatinine Ratio 14 (6-26); Blood Urea Nitrogen 11 mg/dL (6-20); Calcium 8.8 mg/dL (8.6-10.3); Carbon Dioxide 24 mEq/L (23-29); Chloride 107 mEq/L (98-107); Glucose 130 mg/dL (70-105); Osmolality,Calculated 291 (280-300); Potassium 4.2 mEq/L (3.5-5.1); Sodium 140 mEq/L (136-145); eGFR For African Americans > 60 (> 60); eGFR For Non-African Americans > 60 (> 60)
[2021-04-14] MEDS: Cholecalciferol (D-3) 1,000 UNIT (25MCG) TABLET PO SCH (08:25)
[2021-04-14] MEDS: ARIPiprazole 5 MG TABLET PO SCH (08:25)
[2021-04-14] MEDS: Chlorhexidine Rinse 15 ML MOUTHWASH MM SCH (08:28)
[2021-04-14 10:44] VITALS: BP 108/69; PULSE 70; TEMP 97.7; O2SAT 93
[2021-04-14] MEDS: *HR* Enoxaparin 40 MG/0.4 ML SYRINGE SQ SCH (11:08)
== END 2021-04-14 13:31 | disposition home or self-care (01) ==
LOC: 3BNU 23:01 → EMEROOARM 23:01 → 3BNU 04-12 14:06
PROVIDERS: ADMIT Internal Medicine; ATTEND Internal Medicine